=== PATIENT | female | born 1955 | race Caucasian/White ===

== ENCOUNTER 2019-07-19 18:38 | Emergency (ER) | payer BC, OTHER ==
[~2019-07-19] VITALS: Ht 172.7 cm; Wt 59.1 kg
[2019-07-19 18:52] VITALS: Ht 172.7 cm; Wt 59.1 kg
[2019-07-19] MEDS ORDERED: OXYCONTIN30 MG PO (18:56)
[2019-07-19] MEDS ORDERED: METOPROLOL TART50 MG PO (18:57)
[2019-07-19 19:26] LABS: COLOR YELLOW (YELLOW)
[2019-07-19 19:27] LABS: APPEARANCE CLEAR (CLEAR); BILIRUBIN NEGATIVE (NEGATIVE); GLUCOSE NEGATIVE (NEGATIVE); KETONE NEGATIVE (NEGATIVE); NITRITE NEGATIVE (NEGATIVE); PROTEIN NEGATIVE (NEGATIVE); SPECIFIC GRAVITY 1.015 (1.005-1.020); UROBILINOGEN NORMAL (NORMAL)
[2019-07-19 19:33] LABS: UDS - AMPHET NEGATIVE QUAL (NEGATIVE); UDS - BARB NEGATIVE QUAL (NEGATIVE); UDS - BENZO NEGATIVE QUAL (NEGATIVE); UDS - COCAINE NEGATIVE QUAL (NEGATIVE); UDS - OPIATE NEGATIVE QUAL (NEGATIVE); UDS - PCP NEGATIVE QUAL (NEGATIVE); UDS - THC NEGATIVE QUAL (NEGATIVE)
[2019-07-19 19:40] LABS: ALBUMIN 3.7 g/dL (3.4-5.0); ALKALINE PHOSPHATASE 170 U/L (46-116); ALT (SGPT) 11 U/L (10-68); BASOPHILS 0.3 % (0-2); BILIRUBIN - TOTAL 0.51 mg/dL (0.2-1.3); CALC OSMOLALITY 293 mosm/kg (275-300); CALCIUM 8.9 mg/dL (8.5-10.1); CARBON DIOXIDE 26.4 mmol/L (21.0-32.0); CHLORIDE - SERUM 108 mmol/L (98-107); CREATININE - SERUM 0.9 mg/dL (0.6-1.3); EOSINOPHILS 0 % (0-7); GLUCOSE 124 mg/dL (74-106); HEMATOCRIT 39.5 % (36.0-48.0); HEMOGLOBIN 13.2 g/dL (12-16); IMMATURE GRANULOCYTES 0.2 % (0-5); LYMPHOCYTES 18.3 % (15-50); MCH 28.9 pg (26.0-34.0); MCHC 33.4 g/dL (31.0-37.0); MCV 86.6 fL (80.0-100.0); MONOCYTES 7.9 % (2-11); NEUTROPHILS 73.3 % (40-80); PLATELET COUNT 444 10x3/uL (130-400); PROTEIN - SERUM 7.4 g/dL (6.4-8.2); RBC 4.56 10x6/uL (4.00-5.40); RDW 14.3 % (11.5-14.5); SODIUM 145 mmol/L (136-145); UREA NITROGEN 24 mg/dL (7-18); WBC 9.5 10x3/uL (4.8-10.8); eGFR NON AFRICAN AMERICAN 67 mL/min (90-120)
[2019-07-19 19:50] LABS: LIPASE 227 U/L (73-393); MAGNESIUM - SERUM 2.1 mg/dL (1.8-2.4); PRO BNP 1195 pg/mL (0-125); THYROID STIMULATING HORMONE 0.18 uIU/mL (0.36-3.74); TROPONIN-I < 0.017 ng/mL (0.000-0.060)
[2019-07-19] MEDS ORDERED: REGLAN10 MG PO (19:52)
[2019-07-19 20:41] VITALS: BP 160/88
== END 2019-07-19 20:41 | disposition home or self-care (01) ==
LOC: D.ER 18:38
PROVIDERS: Family Medicine
DX: G89.29 Other chronic pain (principal); I10 Essential (primary) hypertension; R74.8 Abnormal levels of other serum enzymes; R11.2 Nausea with vomiting, unspecified

== ENCOUNTER 2019-07-21 06:23 | Emergency (ER) | payer BC, OTHER ==
[~2019-07-21] VITALS: Ht 172.7 cm; Wt 63.6 kg
[~2019-07-21 06:23] MED LIST: METOPROLOL TART50 MG PO; OXYCONTIN30 MG PO; REGLAN10 MG PO
[2019-07-21 06:30] VITALS: Ht 172.7 cm; Wt 63.6 kg
[2019-07-21 07:25] LABS: ALBUMIN 4.4 g/dL (3.4-5.0); ALKALINE PHOSPHATASE 181 U/L (46-116); ALT (SGPT) 10 U/L (10-68); CALCIUM 9.6 mg/dL (8.5-10.1); CARBON DIOXIDE 22.8 mmol/L (21.0-32.0); CHLORIDE - SERUM 104 mmol/L (98-107); CREATININE - SERUM 0.8 mg/dL (0.6-1.3); POTASSIUM - SERUM 3.7 mmol/L (3.5-5.1); PROTEIN - SERUM 9.2 g/dL (6.4-8.2); SODIUM 141 mmol/L (136-145); eGFR NON AFRICAN AMERICAN 77 mL/min (90-120)
[2019-07-21 07:31] LABS: CALC OSMOLALITY 285 mosm/kg (275-300); GLUCOSE 173 mg/dL (74-106); UREA NITROGEN 16 mg/dL (7-18)
[2019-07-21 07:36] LABS: LIPASE 239 U/L (73-393); PRO BNP 3865 pg/mL (0-125)
[2019-07-21 07:40] LABS: TROPONIN-I < 0.017 ng/mL (0.000-0.060)
[2019-07-21 07:55] LABS: BASOPHILS 0.4 % (0-2); EOSINOPHILS 0 % (0-7); HEMATOCRIT 42.5 % (36.0-48.0); HEMOGLOBIN 14.4 g/dL (12-16); IMMATURE GRANULOCYTES 0.3 % (0-5); LYMPHOCYTES 15.8 % (15-50); MCH 29.2 pg (26.0-34.0); MCHC 33.9 g/dL (31.0-37.0); MCV 86.2 fL (80.0-100.0); MEAN PLATELET VOLUME 9.4 fL (7.4-10.4); MONOCYTES 2.8 % (2-11); NEUTROPHILS 80.7 % (40-80); PLATELET COUNT 455 10x3/uL (130-400); RBC 4.93 10x6/uL (4.00-5.40); RDW 14.3 % (11.5-14.5); WBC 10.3 10x3/uL (4.8-10.8)
[2019-07-21 08:55] VITALS: BP 201/89
== END 2019-07-21 08:55 | disposition home or self-care (01) ==
LOC: D.ER 06:23
PROVIDERS: Family Medicine
DX: G89.29 Other chronic pain (principal); Z76.5 Malingerer [conscious simulation]

== ENCOUNTER 2019-09-12 15:39 | Emergency (ER) | payer BC, OTHER ==
[~2019-09-12] VITALS: Ht 172.7 cm; Wt 59.1 kg
[2019-09-12 15:45] VITALS: BP 159/91; Ht 172.7 cm; Wt 59.1 kg
== END 2019-09-12 17:22 | disposition left against medical advice (07) ==
LOC: D.ER 15:39
DX: F41.9 Anxiety disorder, unspecified (principal)